=== PATIENT | female | born 1955 | race Caucasian/White ===

== ENCOUNTER 2017-02-08 14:40 | Emergency (ER) | payer MEDICAID ==
[2017-02-08 14:40] VITALS: BMI 29.5
[2017-02-08] MEDS ORDERED: Sodium Chloride 0.9% 1,000 ML IV ONE (15:04)
[2017-02-08] MEDS ORDERED: Iohexol 240 (50 ml) PO ONE (15:29)
[2017-02-08] MEDS ORDERED: Iohexol 240 (50 ml) ONE (16:03)
[2017-02-08] MEDS ORDERED: Sodium Chloride 0.9% 1,000 ML ONE (16:03)
[2017-02-08 16:29] LABS: BASO % 0.4 % (0.0-2.0); EOS % 0.2 % (0.0-4.0); HEMATOCRIT 43.5 % (34.0-47.0); LYMPH # 1.5 K/uL (1.0-4.3); MEAN CELL VOLUME 86.3 fL (81.0-99.0); MEAN CORPUSCULAR HEMOGLOBIN 29.3 pg (27.0-31.0); MEAN PLATELET VOLUME 7.9 fL (7.2-11.7); MONO # 0.7 K/uL (0.0-0.8); MONO % 6.6 % (0.0-10.0); RED CELL DISTRIBUTION WIDTH 14.6 % (11.5-14.5); WHITE BLOOD COUNT 10.6 K/uL (4.8-10.8)
[2017-02-08 16:38] LABS: CHLORIDE 99 mmol/L (98-107); POTASSIUM 4.7 mmol/L (3.6-5.2); SODIUM 138 mmol/L (132-148)
[2017-02-08 16:40] LABS: GFR AFRICAN-AMERICAN > 60
[2017-02-08 16:41] LABS: ALB/GLOB RATIO 1.2 (1.0-2.1); ALKALINE PHOSPHATASE 113 U/L (38-126); ALT/SGPT 38 U/L (9-52); AST/SGOT 25 U/L (14-36); BILIRUBIN,TOTAL 0.5 mg/dL (0.2-1.3); BLOOD UREA NITROGEN 18 mg/dL (7-17); CALCIUM 9.8 mg/dl (8.6-10.4); CARBON DIOXIDE 26 mmol/L (22-30); GLUCOSE,RANDOM 120 mg/dL (65-105); TOTAL PROTEIN 8.2 g/dL (6.3-8.3)
[2017-02-08 17:13] LABS: RBC URINE 5 /hpf (0-3); URINE BACTERIA MOD (<OCC); URINE BILIRUBIN NEGATIVE (NEGATIVE); URINE BLOOD 1+ (NEGATIVE); URINE COLOR Yellow (YELLOW); URINE GLUCOSE (UA) NORMAL (Normal); URINE KETONE NEGATIVE (NEGATIVE); URINE PROTEIN 1+ mg/dL (NEGATIVE); URINE UROBILINOGEN NORMAL mg/dL (0.2-1.0); WBC URINE 56 /hpf (0-5)
[2017-02-08 17:14] LABS: URINE LEUKOCYTE ESTERASE 3+ Leu/uL (Negative)
[2017-02-08] MEDS ORDERED: Morphine 4 MG/ML VIAL IV STA (17:36)
[2017-02-08] MEDS ORDERED: Morphine 4 MG/ML VIAL ONE (17:51)
[2017-02-08] MEDS ORDERED: Iohexol 300 100 ML IJ ONE (18:13)
[2017-02-08] MEDS ORDERED: cefTRIAXone IV 1 gm in Dextros 50 ML IVPB ONE (18:54)
--- NOTE | 2017-02-08 19:08 | CT ---
PROCEDURE: CT scan abdomen and pelvis dated 02/08/2017 HISTORY: Epigastric and mid-abdominal pain COMPARISON: No prior study available for comparison TECHNIQUE: Contiguous axial images of the abdomen and pelvis. Oral contrast was administered. No IV contrast given. Coronal and Sagittal reformats generated. This CT exam was performed using one or more of the following dose reduction techniques: Automated exposure control, adjustment of the mA and/or kV according to patient size, and/or use of iterative reconstruction technique. Contrast dose: 100 cc Visipaque 320 Radiation dose: Total exam DLP = 575.99 mGy-cm. FINDINGS: LOWER THORAX: Mild passive atelectasis both posterior lower lung zones. LIVER: Liver exhibits normal size measuring and estimated 13 cm in CC dimension. Moderate diffuse fatty hepatic infiltration. . No obvious hepatic mass collection or calcification. There is a small to medium amount of perihepatic ascites with ascites extending into Pierson's pouch. Pelvic ascites is also present. GALLBLADDER AND BILE DUCTS: The gallbladder is physiologically distended. No evidence of intraluminal gallbladder calculi. Under cerebral number slight PANCREAS: Visualized portions of the pancreas appears grossly unremarkable. SPLEEN: Spleen exhibits normal size and attenuation pattern without mass collection or calcification. ADRENALS: No adrenal lesions seen. KIDNEYS AND URETERS: Kidneys demonstrate symmetric nephrograms. No evidence of nephrolithiasis or hydronephrosis. Exophytic low-attenuation lesion arising from the anterior upper pole right kidney that measures approximately 18.6 mm x 16 point 9 mm. This focus on may represent hyperdense cyst as Hounsfield units register in the upper 20s and low 30s. The possibility of a solid lesion must be excluded. There is also an elliptical shaped low-attenuation lesion upper pole left kidney that measures approximately 2.8 x 11.7 mm that is associate with a tiny calcification along the posterior inferior border and also exhibits on Hounsfield units in the mid 20s ; there is a 2nd similar smaller lesion along the anterior upper pole left kidney as well which may represent hyperdense renal cysts however however recommend followup renal ultrasound to confirm cysts and exclude any solid lesions. . BLADDER: The urinary bladder is incompletely distended which may account for thick-walled appearance. Possibility of a cystitis should be excluded. REPRODUCTIVE: Uterus appears grossly unremarkable not withstanding surrounding ascites. . APPENDIX: Appendix appears unremarkable best seen on coronal image number [id number]. BOWEL: Evaluation of the bowel is somewhat limited due to incomplete opacification. There is slight wall thickening of the distal stomach which may in part be due to peristalsis and muscular hypertrophy however concomitant gastritis to be excluded. There are several loops of bowel that exhibit abnormal wall thickening consistent with nonspecific enteritis. No evidence of acute mechanical bowel obstruction with a stool and air seen throughout the colon. . PERITONEUM: No gross free intraperitoneal air LYMPH NODES: Unremarkable. No enlarged lymph nodes. VASCULATURE: Unremarkable. No aortic aneurysm. BONES: Mild multilevel degenerative spondylosis of the title of thoracic and lumbar spine. OTHER FINDINGS: None. IMPRESSION: Findings consistent with nonspecific gastroenteritis with a moderate amount of moderate amount of abdominal and pelvic ascites. Moderate fatty hepatic infiltration. Bilateral low-attenuation renal lesions which exhibit Hounsfield units greater than that of simple cyst. Findings could represent a hyperdense cyst. Recommend renal ultrasound to exclude solid lesions and confirm cyst. Findings discussed with Dr. Ceballos at approximately 7 p.m. with written down and read back verification.
--- NOTE | 2017-02-08 20:16 | C.PDOC ---
History Of Present Illness <Paolo Ceballos DO - Last Filed: 02/08/17 20:12> <Sandra Casas - Last Filed: 02/09/17 07:18> 61 year old female, with a history of gastritis, presents to the ED with complaints of abdominal pain, nausea and vomiting for two days. Patient reports vomiting is non-bilious and non-bloody. She denies fever, chills, chest pain, shortness of breath, hematuria, or blood in stool. (Paolo Ceballos DO) History Per: Patient History/Exam Limitations: no limitations Onset/Duration Of Symptoms: Days (2 days ) Current Symptoms Are (Timing): Still Present Location Of Pain/Discomfort: Diffuse Radiation Of Pain To:: None Quality Of Discomfort: "Pain" Associated Symptoms: Nausea, Vomiting. denies: Fever, Chills, Diarrhea, Back Pain, Urinary Symptoms Exacerbating Factors: None Alleviating Factors: None Recent travel outside of the [place]: No <Paolo Ceballos DO - Last Filed: 02/08/17 20:12> <Sandra Casas - Last Filed: 02/09/17 07:18> Chief Complaint (Nursing): Abdominal Pain Past Medical History Reviewed: Historical Data, Nursing Documentation, Vital Signs - Medical History PMH: Asthma (Seasonal), Gastritis, HTN, Hypercholesterolemia, Migraine Family History: States: Unknown Family Hx - Social History Hx Tobacco Use: No Hx Alcohol Use: No Hx Substance Use: No - Immunization History Hx Tetanus Toxoid Vaccination: No Hx Influenza Vaccination: Yes Hx Pneumococcal Vaccination: Yes <Paolo Ceballos DO - Last Filed: 02/08/17 20:12> Vital Signs: Last Vital Signs Temp 98.4 F 02/08/17 20:40 Pulse 76 02/08/17 20:40 Resp 18 02/08/17 20:40 BP 102/66 02/08/17 20:40 Pulse Ox 99 02/08/17 20:40 Review Of Systems Constitutional: Negative for: Fever, Chills Cardiovascular: Negative for: Chest Pain Respiratory: Negative for: Cough, Shortness of Breath Gastrointestinal: Positive for: Nausea, Vomiting, Abdominal Pain. Negative for : Diarrhea, Hematochezia Genitourinary: Negative for: Dysuria, Hematuria Musculoskeletal: Negative for: Back Pain <Paolo Ceballos DO - Last Filed: 02/08/17 20:12> Physical Exam - Physical Exam Appears: Non-toxic, In Acute Distress (appears ot be in mild distress) Skin: Warm, Dry Head: Atraumatic, Normacephalic Eye(s): bilateral: Normal Inspection, PERRL, EOMI Oral Mucosa: Moist Neck: Supple Chest: Symmetrical, No Deformity Cardiovascular: Rhythm Regular, No Murmur Respiratory: No Rales, No Rhonchi, No Wheezing, Other (clear to auscultation bilaterally ) Gastrointestinal/Abdominal: Bowel Sounds (positive bowel sounds ), Soft, Tenderness (epigastric and mid-abdominal tenderness), No Distention, No Guarding , No Rebound Neurological/Psych: Oriented x3 <Tucker Paolo SUMNER - Last Filed: 02/08/17 20:12> ED Course And Treatment - Laboratory Results Result Diagrams: 02/08/17 16:20 02/08/17 16:20 O2 Sat by Pulse Oximetry: 97 (RA) - CT Scan/US Abdomen CT Other Rad Studies (CT/US): Read By Radiologist, Radiology Report Reviewed CT/US Interpretation: FINDINGS: LOWER THORAX: Mild passive atelectasis both posterior lower lung zones. LIVER: Liver exhibits normal size measuring and estimated 13 cm in CC dimension. Moderate diffuse fatty hepatic infiltration. . No obvious hepatic mass collection or calcification. There is a small to medium amount of perihepatic ascites with ascites extending into Pierson's pouch. Pelvic ascites is also present. GALLBLADDER AND BILE DUCTS: The gallbladder is physiologically distended. No evidence of intraluminal gallbladder calculi. Under cerebral number slight. PANCREAS: Visualized portions of the pancreas appears grossly unremarkable. SPLEEN: Spleen exhibits normal size and attenuation pattern without mass collection or calcification. ADRENALS: No adrenal lesions seen. KIDNEYS AND URETERS: Kidneys demonstrate symmetric nephrograms. No evidence of nephrolithiasis or hydronephrosis. Exophytic low-attenuation lesion arising from the anterior upper pole right kidney that measures approximately 18.6 mm x 16 point 9 mm. This focus on may represent hyperdense cyst as Hounsfield units register in the upper 20s and low 30s. The possibility of a solid lesion must be excluded. There is also an elliptical shaped low-attenuation lesion upper pole left kidney that measures approximately 2.8 x 11.7 mm that is associate with a tiny calcification along the posterior inferior border and also exhibits on Hounsfield units in the mid 20s ; there is a 2nd similar smaller lesion along the anterior upper pole left kidney as well which may represent hyperdense renal cysts however however recommend followup renal ultrasound to confirm cysts and exclude any solid lesions. . BLADDER: The urinary bladder is incompletely distended which may account for thick-walled appearance. Possibility of a cystitis should be excluded. REPRODUCTIVE: Uterus appears grossly unremarkable not withstanding surrounding ascites. . APPENDIX: Appendix appears unremarkable best seen on coronal image number [id number]. BOWEL: Evaluation of the bowel is somewhat limited due to incomplete opacification. There is slight wall thickening of the distal stomach which may in part be due to peristalsis and muscular hypertrophy however concomitant gastritis to be excluded. There are several loops of bowel that exhibit abnormal wall thickening consistent with nonspecific enteritis. No evidence of acute mechanical bowel obstruction with a stool and air seen throughout the colon. . PERITONEUM: No gross free intraperitoneal air. LYMPH NODES: Unremarkable. No enlarged lymph nodes. VASCULATURE: Unremarkable. No aortic aneurysm. BONES: Mild multilevel degenerative spondylosis of the title of thoracic and lumbar spine. OTHER FINDINGS: None. IMPRESSION: Findings consistent with nonspecific gastroenteritis with a moderate amount of moderate amount of abdominal and pelvic ascites. Moderate fatty hepatic infiltration. Bilateral low-attenuation renal lesions which exhibit Hounsfield units greater than that of simple cyst. Findings could represent a hyperdense cyst. Recommend renal ultrasound to exclude solid lesions and confirm cyst. Findings discussed with Dr. Ceballos at approximately 7 p.m. with written down and read back verification. Progress Note: Abdomen &Pelvis CT and blood work was ordered. Patient was given morphine, pepcid, rocephin, Toradol, Zofran, and IV fluids. <Paolo Ceballos DO - Last Filed: 02/08/17 20:12> - Laboratory Results Result Diagrams: 02/08/17 16:20 02/08/17 16:20 <Sandra Casas - Last Filed: 02/09/17 07:18> Disposition <Paolo Ceballos DO - Last Filed: 02/08/17 20:12> - Disposition Disposition Time: 20:26 <Sandra Casas - Last Filed: 02/09/17 07:18> - Disposition Referrals: [facility] [Outside] Disposition: HOME/ ROUTINE Condition: FAIR Prescriptions: Cephalexin [cephalexin] 500 mg PO TID #30 cap Ondansetron ODT [Zofran ODT] 4 mg PO Q6 PRN #10 odt PRN Reason: Nausea/Vomiting Forms: [facility] (Danish), Gen Discharge Inst Kyrgyz - Clinical Impression Clinical Impression: UTI (urinary tract infection) - Scribe Statement The provider has reviewed the documentation as recorded by the Scribe <Paolo Ceballos DO - Last Filed: 02/08/17 20:12> <Sandra Casas - Last Filed: 02/09/17 07:18> - Scribe Statement Taniya Stringer All medical record entries made by the Scribe were at my direction and personally dictated by me. I have reviewed the chart and agree that the record accurately reflects my personal performance of the history, physical exam, medical decision making, and the department course for this patient. I have also personally directed, reviewed, and agree with the discharge instructions and disposition. (Paolo Ceballos DO) Addendum <Paolo Ceballos DO - Last Filed: 02/08/17 20:12> <Sandra Casas - Last Filed: 02/09/17 07:18> Addendum: 02/08/17 20:[address] Marty Casas: Abdomen is soft and non-tender. Trial of fluids given, if patient tolerates, will be sent home with antibiotics. Patient instructed to follow up with urologist regarding renal cyst. 02/08/17 20:56 Patient is tolerating fluids pain free at this time and will be sent home with 10 day course of antibiotics and antiemetics.. Patient instructed to return for intractable pain, persistent, fevers, or inability for oral intake. (Sandra Casas)
[2017-02-08 20:41] VITALS: BP 102/66; PULSE 76; RESP 18; TEMP 98.4; O2SAT 99
== END 2017-02-08 20:42 | disposition home or self-care (01) ==
LOC: C.ER 14:40
DX: N39.0 Urinary tract infection, site not specified (principal)
CPT/HCPCS: 74177; 80053; 81001; 83690; 85025; 87086; 87181; 96361; 96365; 96375; 99285; J0696; J1885; J2270; J2405; J7040; Q9966; Q9967

== ENCOUNTER 2018-02-22 08:13 | Emergency (ER) | payer MEDICAID, OTHER ==
[2018-02-22 08:13] VITALS: BMI 29.5
[2018-02-22] MEDS ORDERED: Tobramycin 0.3% OPHT SOLN OU STA (08:52)
[2018-02-22] MEDS ORDERED: Tobramycin 0.3% OPH OINT ONE (09:15)
--- NOTE | 2018-02-22 09:21 | C.PDOC ---
History Of Present Illness 62 years old female presents to ED for evaluation of itchiness, redness, and discharge from both eyes that began 1 day ago. Patient also reports noticing crusting. Denies any other complaints. Time Seen by Provider: 02/22/18 08:29 Chief Complaint (Nursing): Eye Problem History Per: Patient History/Exam Limitations: no limitations Onset/Duration Of Symptoms: Days (1) Current Symptoms Are (Timing): Still Present Recent travel outside of the [place]: No Past Medical History Reviewed: Historical Data, Nursing Documentation, Vital Signs Vital Signs: Last Vital Signs Temp 98.7 F 02/22/18 08:25 Pulse 79 02/22/18 08:25 Resp 16 02/22/18 08:25 BP 153/102 H 02/22/18 08:25 Pulse Ox 98 02/22/18 08:25 - Medical History PMH: Asthma (Seasonal), Gastritis, HTN, Hypercholesterolemia, Migraine Family History: States: Unknown Family Hx - Social History Hx Tobacco Use: No Hx Alcohol Use: No Hx Substance Use: No - Immunization History Hx Tetanus Toxoid Vaccination: No Hx Influenza Vaccination: Yes Hx Pneumococcal Vaccination: Yes Review Of Systems Constitutional: Negative for: Fever, Chills Eyes: Positive for: Redness (And itchiness of both eyes ), Other (Discharge from both eyes ) Skin: Negative for: Rash Neurological: Negative for: Weakness, Numbness Physical Exam - Physical Exam Appears: Non-toxic, No Acute Distress Skin: Normal Color, Warm, Dry, No Rash Head: Atraumatic, Normacephalic Eye(s): bilateral: Other (Upper and lower Eye lids erythematous. No Crusting. ) Oral Mucosa: Moist Neck: Normal ROM, Supple Chest: Symmetrical, No Tenderness Cardiovascular: Rhythm Regular, No Murmur Respiratory: Normal Breath Sounds, No Rales, No Rhonchi, No Wheezing Extremity: Normal ROM Extremity: Bilateral: Atraumatic, Normal Color And Temperature, Normal ROM Pulses: Left Radial: Normal, Right Radial: Normal Neurological/Psych: Oriented x3, Normal Speech Gait: Steady ED Course And Treatment O2 Sat by Pulse Oximetry: 98 (RA) Pulse Ox Interpretation: Normal Medical Decision Making Medical Decision Making: Plan: * Tobrex Progress: Patient will be discharged with antibiotic and allergy eye drops. Patient is instructed to return if symptoms worsen or persist. Patient has no complaints at this time. Patient is stable for discharge. 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 - Scribe Statement The provider has reviewed the documentation as recorded by the Galoibleticia Guzman All medical record entries made by the Galoibleticia were at my direction and personally dictated by me. I have reviewed the chart and agree that the record accurately reflects my personal performance of the history, physical exam, medical decision making, and the department course for this patient. I have also personally directed, reviewed, and agree with the discharge instructions and disposition.
--- NOTE | 2018-02-22 09:26 | C.PDOC ---
History Of Present Illness 62 years old female presents to ED for evaluation of itchiness, redness, and discharge from both eyes that began 1 day ago. Patient also reports noticing crusting in both eye (-) visual problems. Denies any other complaints. Time Seen by Provider: 02/22/18 08:29 Chief Complaint (Nursing): Eye Problem History Per: Patient History/Exam Limitations: no limitations Onset/Duration Of Symptoms: Days (1) Current Symptoms Are (Timing): Still Present Injury To Eye?: No Wears Contact Lens?: No Associated Symptoms: Itching, Discharge From Eye Recent travel outside of the [place]: No Past Medical History Reviewed: Historical Data, Nursing Documentation, Vital Signs Vital Signs: Last Vital Signs Temp 98.7 F 02/22/18 08:25 Pulse 79 02/22/18 08:25 Resp 16 02/22/18 08:25 BP 153/102 H 02/22/18 08:25 Pulse Ox 98 02/22/18 08:25 - Medical History PMH: Asthma (Seasonal), Gastritis, HTN, Hypercholesterolemia, Migraine Family History: States: Unknown Family Hx - Social History Hx Tobacco Use: No Hx Alcohol Use: No Hx Substance Use: No - Immunization History Hx Tetanus Toxoid Vaccination: No Hx Influenza Vaccination: Yes Hx Pneumococcal Vaccination: Yes Review Of Systems Constitutional: Negative for: Fever, Chills Eyes: Positive for: Redness (And itchiness of both eyes ), Other (Discharge from both eyes ) Skin: Negative for: Rash Neurological: Negative for: Weakness, Numbness Physical Exam - Physical Exam Appears: Non-toxic, No Acute Distress Skin: Normal Color, Warm, Dry, No Rash Eye(s): bilateral: Other (Upper and lower Eye lids erythematous. No Crusting.) Oral Mucosa: Moist Neck: Normal ROM, Supple Chest: Symmetrical, No Tenderness Cardiovascular: Rhythm Regular, No Murmur Respiratory: Normal Breath Sounds, No Rales, No Rhonchi, No Wheezing Extremity: Normal ROM Extremity: Bilateral: Atraumatic, Normal Color And Temperature, Normal ROM Pulses: Left Radial: Normal, Right Radial: Normal Neurological/Psych: Oriented x3, Normal Speech Gait: Steady ED Course And Treatment O2 Sat by Pulse Oximetry: 98 (RA) Pulse Ox Interpretation: Normal Progress Note: tobramycin opthalmic to both eyes. Discharge in stable condition Reassessment Condition: Improved Medical Decision Making Medical Decision Making: Plan: * Tobrex Progress: Patient will be discharged with antibiotic and allergy eye drops. Patient is instructed to return if symptoms worsen or persist. Patient has no complaints at this time. Patient is stable for discharge. Disposition Counseled Patient/Family Regarding: Diagnosis, Need For Followup, Rx Given - Disposition Referrals: Vivek Marie MD [Staff Provider] - [facility] [Outside] 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 - Scribe Statement The provider has reviewed the documentation as recorded by the Scribleticia Guzman All medical record entries made by the Jasmin were at my direction and personally dictated by me. I have reviewed the chart and agree that the record accurately reflects my personal performance of the history, physical exam, medical decision making, and the department course for this patient. I have also personally directed, reviewed, and agree with the discharge instructions and disposition.
[2018-02-22 09:44] VITALS: BP 151/90; PULSE 82; RESP 18; TEMP 98.6
[2018-02-22 16:30] VITALS: O2SAT 98
== END 2018-02-22 09:46 | disposition home or self-care (01) ==
LOC: C.ER 08:13
DX: H57.13 Ocular pain, bilateral (principal); H44.003 Unspecified purulent endophthalmitis, bilateral